=== PATIENT | female | born 1965 | race Caucasian/White ===

== ENCOUNTER 2017-02-12 13:00 | Inpatient (IN) | payer BC, OTHER ==
[~2017-02-12] VITALS: Ht 167.6 cm; Wt 86.3 kg
[~2017-02-12 13:00] MED LIST: BIOT25004 PO; CIME200T4 PO; CYCL-259 PO; GABA-826 PO; IBUP800T PO; LEVO150T5 PO; LORA10TA3 PO; METF10002 PO; MULT-516 PO; OXYC15TA PO; OXYC20TA2 PO; OXYM30SP2 NAS; PRED10TA PO; SITA50TA PO; SOMA PO
[2017-02-19] MEDS ORDERED: THROMBIN 20,000 UNIT VIAL TP ONE (06:46)
[2017-02-19] MEDS ORDERED: BUPIVACAINE/PF 0.5% ONE (06:46)
[2017-02-19] MEDS ORDERED: BACITRACIN 50,000 UNIT ONE (06:46)
[2017-02-19] MEDS ORDERED: EPINEPHRINE 1 MG/ML, 1ML ONE (06:46)
[2017-02-19] MEDS ORDERED: REMIFENTANIL 2 MG ONE (11:33)
[2017-02-19] MEDS ORDERED: KETAMINE 10 MG/ML, 20ML ONE (11:33)
[2017-02-19] MEDS ORDERED: MIDAZOLAM 1 MG/ML, 2ML ONE ×2 (11:33→18:41)
[2017-02-19] MEDS ORDERED: FENTANYL PF 250 MCG/5ML ONE (11:33)
[2017-02-19] MEDS ORDERED: LACTATED RINGERS 1,000 ML IV SCH (11:40)
[2017-02-19 11:41] VITALS: BP 131/76
[2017-02-19] MEDS ORDERED: OXYC40TA27 PO (11:49)
[2017-02-19] MEDS ORDERED: ROCURONIUM 10 MG/ML ONE (13:35)
[2017-02-19] MEDS ORDERED: SUCCINYLCHOLINE 20 MG/ML, 10ML ONE (13:35)
[2017-02-19] MEDS ORDERED: DEXAMETHASONE 4 MG/ML, 1ML ONE (13:35)
[2017-02-19] MEDS ORDERED: PROPOFOL 10 MG/ML, 50ML ONE (13:35)
[2017-02-19] MEDS ORDERED: CEFAZOLIN 1,000 MG ONE (13:35)
[2017-02-19] MEDS ORDERED: PROPOFOL 10 MG/ML, 20ML ONE (13:35)
[2017-02-19] MEDS ORDERED: ONDANSETRON 2MG/ML, 2ML ONE (13:35)
[2017-02-19] MEDS ORDERED: PHENYLEPHRINE 10 MG/ML ONE (13:35)
[2017-02-19] MEDS ORDERED: PROMETHAZINE 25 MG/ML, 1ML IV PRN (15:00)
[2017-02-19] MEDS ORDERED: OXYcodone 5 MG/5 ML ORAL.SOL UDC PO PRN (15:00)
[2017-02-19] MEDS ORDERED: MIDAZOLAM 1 MG/ML, 2ML IV PRN (15:00)
[2017-02-19] MEDS ORDERED: ALBUTEROL SULFATE 2.5 MG/3 ML NPPB PRN (15:00)
[2017-02-19] MEDS ORDERED: LABETALOL 5MG/ML, 20ML IV PRN (15:00)
[2017-02-19] MEDS ORDERED: MEPERIDINE/PF 25MG/0.5ML IVPush PRN (15:00)
[2017-02-19] MEDS ORDERED: ACETAMINOPHEN 325 MG TABLET PO PRN (15:00)
[2017-02-19] MEDS ORDERED: hydrALAzine 20 MG/ML, 1ML IV PRN (15:00)
[2017-02-19] MEDS ORDERED: NEOSPORIN OINT, 15GM ONE (15:20)
[2017-02-19] MEDS ORDERED: BUPIVACAINE/PF-EPI 0.5% 1:200K ONE (16:07)
[2017-02-19] MEDS ORDERED: HYDROmorphone 1 MG/ML, 1ML ONE ×2 (17:02→18:09)
[2017-02-19] MEDS: HYDROmorphone 1 MG/ML, 1ML IV PRN ×4 (18:26→19:56)
[2017-02-19] MEDS ORDERED: HYDROmorphone 2 MG/ML, 1ML ONE (18:30)
[2017-02-19] MEDS ORDERED: ACETAMINOPHEN 650 MG/20.3 ML UDC ONE (18:30)
[2017-02-19] MEDS ORDERED: INSULIN SINGLE DOSE, ER SQ-INSULIN ONE (18:31)
[2017-02-19] MEDS ORDERED: OXYcodone 5 MG/5 ML ORAL.SOL UDC ONE (18:31)
[2017-02-19] MEDS ORDERED: FENTANYL PF 100 MCG/2ML ONE (18:41)
[2017-02-19] MEDS: FENTANYL PF 100 MCG/2ML IV PRN ×2 (18:42→19:26)
[2017-02-19] MEDS ORDERED: INSULIN REGULAR 100 UNITS/ML, 3ML VIAL SQ-INSULIN ONE (19:00)
[2017-02-19] MEDS ORDERED: PHARMACY MAY ADJ FOR RENAL FX MC PRN (20:00)
[2017-02-19 20:15] VITALS: BP 119/77
[2017-02-19] MEDS ORDERED: ZOLPIDEM 5MG TABLET PO PRN (21:00)
[2017-02-19] MEDS ORDERED: DIPHENHYDRAMINE 50 MG/ML, 1ML IVPush PRN (21:30)
[2017-02-19] MEDS ORDERED: ONDANSETRON 2MG/ML, 2ML IV PRN (21:30)
[2017-02-19] MEDS ORDERED: OXYcodone/APAP 5/325MG TABLET PO PRN (21:30)
[2017-02-19] MEDS ORDERED: DIPHENHYDRAMINE 50 MG/ML, 1ML IM PRN (21:30)
[2017-02-19] MEDS ORDERED: HYDROcodone/APAP 5/325 TABLET PO PRN (21:30)
[2017-02-19] MEDS ORDERED: DIPHENHYDRAMINE 50 MG CAPSULE PO PRN (21:30)
[2017-02-19] MEDS ORDERED: PROMETHAZINE 25 MG/ML, 1ML IM PRN (21:30)
[2017-02-19] MEDS ORDERED: METHOCARBAMOL 1,000 MG in DEXTROSE 5% 100 ML IV ONE (22:00)
[2017-02-19] MEDS: NS + 20MEQ KCL 1,000 ML IV SCH (23:13)
[2017-02-19] MEDS: CEFAZOLIN PMX 2GM/50ML 50 ML IVPB SCH (23:13)
[2017-02-20 00:17] VITALS: BP 119/75
[2017-02-20] MEDS: CYCLOBENZAPRINE 10 MG TABLET PO SCH ×4 (00:37→21:56)
[2017-02-20] MEDS ORDERED: DIAZEPAM 5 MG TABLET ONE ×3 (01:43→23:27)
[2017-02-20] MEDS: DIAZEPAM 10 MG TABLET PO PRN ×3 (01:46→23:53)
[2017-02-20] MEDS: INSULIN REGULAR 100 UNITS/ML, 3ML VIAL SQ-INSULIN PRN ×4 (01:59→22:08)
[2017-02-20 02:25] VITALS: BP 121/88
[2017-02-20] MEDS ORDERED: METHOCARBAMOL 750 MG in DEXTROSE 5% 100 ML IV SCH (06:00)
[2017-02-20] MEDS: CEFAZOLIN PMX 2GM/50ML 50 ML IVPB SCH ×2 (06:17→15:06)
[2017-02-20] MEDS ORDERED: INSULIN REGULAR 100 UNITS/ML, 3ML VIAL SQ-INSULIN SCH (07:00)
[2017-02-20 07:43] VITALS: BP 128/83
[2017-02-20] MEDS: SENNA/DOCUSATE TABLET PO SCH (07:59)
[2017-02-20] MEDS: NS + 20MEQ KCL 1,000 ML IV SCH ×2 (09:33→21:36)
[2017-02-20] MEDS ORDERED: MORPHINE SULFATE 4 MG/ML, 1ML ONE (09:37)
[2017-02-20] MEDS: MORPHINE SULFATE 4 MG/ML, 1ML IV PRN (09:39)
[2017-02-20] MEDS ORDERED: morphine SULFATE 10 MG/ML, 1ML IVPush ONE (10:00)
[2017-02-20] MEDS: OXYcodone IR 5MG TABLET PO PRN ×3 (10:07→18:25)
[2017-02-20 14:59] VITALS: BP 94/52
[2017-02-20 18:42] VITALS: BP 125/72
[2017-02-20] MEDS ORDERED: HYDROmorphone 1 MG/ML, 1ML IV ONE (19:00)
[2017-02-20] MEDS ORDERED: OxyconTIN ER 20 MG TAB.ER ONE (21:54)
[2017-02-20] MEDS: OxyconTIN ER 40 MG TAB.ER PO SCH (21:56)
[2017-02-21 01:47] VITALS: BP 107/66
[2017-02-21] MEDS: OXYcodone IR 5MG TABLET PO PRN ×5 (02:00→21:34)
[2017-02-21] MEDS: HYDROmorphone 1 MG/ML, 1ML IV PRN ×2 (04:12→15:30)
[2017-02-21] MEDS: ENOXAPARIN 30 MG/0.3 ML SQ SCH ×2 (06:08→17:01)
[2017-02-21] MEDS: MORPHINE SULFATE 4 MG/ML, 1ML IV PRN ×2 (06:31→23:36)
[2017-02-21 07:47] VITALS: BP 120/65
[2017-02-21] MEDS: CYCLOBENZAPRINE 10 MG TABLET PO SCH ×3 (08:11→21:33)
[2017-02-21] MEDS: SENNA/DOCUSATE TABLET PO SCH (08:11)
[2017-02-21] MEDS: OxyconTIN ER 40 MG TAB.ER PO SCH ×2 (09:00→22:49)
[2017-02-21] MEDS ORDERED: OxyconTIN ER 20 MG TAB.ER ONE (09:31)
[2017-02-21] MEDS: NS + 20MEQ KCL 1,000 ML IV SCH (10:25)
[2017-02-21 13:48] VITALS: BP 99/62
[2017-02-21] MEDS ORDERED: HYDROmorphone 2MG TABLET PO PRN (18:30)
[2017-02-21 19:39] VITALS: BP 124/72
[2017-02-21] MEDS: DIAZEPAM 10 MG TABLET PO PRN (21:45)
[2017-02-22] MEDS: NS + 20MEQ KCL 1,000 ML IV SCH ×2 (00:11→09:45)
[2017-02-22 01:46] VITALS: BP 110/67
[2017-02-22] MEDS: OXYcodone IR 5MG TABLET PO PRN ×5 (03:13→21:29)
[2017-02-22] MEDS: ENOXAPARIN 30 MG/0.3 ML SQ SCH ×2 (06:00→18:00)
[2017-02-22] MEDS ORDERED: METHOCARBAMOL 750 MG TABLET PO SCH (06:00)
[2017-02-22] MEDS: DIAZEPAM 10 MG TABLET PO PRN (06:25)
[2017-02-22] MEDS ORDERED: DEXAMETHASONE 4 MG/ML, 1ML IVPush SCH (07:00)
[2017-02-22] MEDS ORDERED: OxyconTIN ER 20 MG TAB.ER ONE ×2 (07:56→21:06)
[2017-02-22] MEDS: CYCLOBENZAPRINE 10 MG TABLET PO SCH ×3 (08:00→21:26)
[2017-02-22] MEDS: SENNA/DOCUSATE TABLET PO SCH (08:01)
[2017-02-22] MEDS: MAGNESIUM HYDROXIDE 8%, 30ML UDC PO PRN (08:01)
[2017-02-22] MEDS: KETOROLAC 30 MG/1 ML IM SCH ×3 (08:01→18:44)
[2017-02-22] MEDS: OxyconTIN ER 40 MG TAB.ER PO SCH ×2 (08:01→21:00)
[2017-02-22 08:44] VITALS: BP 91/57
[2017-02-22 13:08] VITALS: BP 110/73
[2017-02-22] MEDS: BISACODYL 10 MG SUPP PR PRN (17:02)
[2017-02-22 21:00] VITALS: BP 94/61
[2017-02-23 02:36] VITALS: BP 98/64
[2017-02-23] MEDS: OXYcodone IR 5MG TABLET PO PRN ×3 (03:46→12:09)
[2017-02-23] MEDS: KETOROLAC 30 MG/1 ML IM SCH ×2 (03:47→08:01)
[2017-02-23] MEDS: NS + 20MEQ KCL 1,000 ML IV SCH ×2 (06:00→09:51)
[2017-02-23] MEDS: ENOXAPARIN 30 MG/0.3 ML SQ SCH (06:00)
[2017-02-23 07:28] VITALS: BP 95/58
[2017-02-23] MEDS: MAGNESIUM HYDROXIDE 8%, 30ML UDC PO PRN (08:08)
[2017-02-23] MEDS: OxyconTIN ER 40 MG TAB.ER PO SCH (09:00)
[2017-02-23] MEDS ORDERED: OxyconTIN ER 20 MG TAB.ER ONE (09:22)
[2017-02-23] MEDS: SENNA/DOCUSATE TABLET PO SCH (09:25)
[2017-02-23] MEDS: CYCLOBENZAPRINE 10 MG TABLET PO SCH (09:25)
[2017-02-23] MEDS: BISACODYL 10 MG SUPP PR PRN (09:26)
[2017-02-23] MEDS ORDERED: OXYC40TA27 PO (10:16)
[2017-02-23] MEDS ORDERED: OXYC30TA PO (10:17)
[2017-02-23] MEDS ORDERED: HYDR2TAB29 PO (10:19)
[2017-02-23] MEDS ORDERED: SENN1TAB7 PO (10:21)
[2017-02-23] MEDS ORDERED: DIAZ5TAB PO (10:22)
[2017-02-23] MEDS ORDERED: CALC300T5 PO (10:23)
[2017-02-23] MEDS ORDERED: CHOL200040 PO (10:24)
== END 2017-02-23 12:25 | disposition home or self-care (01) | DRG 455 ==
LOC: ORIP 02-19 11:00 → 4NOR 02-19 20:15
PROVIDERS: ADMIT Neurological Surgery; ATTEND Neurological Surgery
PROC: 0SG30A1 (ICD-10-PCS; 2017-02-19)
PROC: 01NB0ZZ Release Lumbar Nerve, Open Approach (ICD-10-PCS; 2017-02-19)
PROC: 0SB20ZZ Excision of Lumbar Vertebral Disc, Open Approach (ICD-10-PCS; 2017-02-19)
PROC: 4A11X4G Monitoring of Peripheral Nervous Electrical Activity, Intraoperative, External Approach (ICD-10-PCS; 2017-02-19)
PROC: 0SG00A0 Fusion of Lumbar Vertebral Joint with Interbody Fusion Device, Anterior Approach, Anterior Column, Open Approach (ICD-10-PCS; principal; 2017-02-19 13:00)
DX: M48.06 Spinal stenosis, lumbar region (principal); M43.16 Spondylolisthesis, lumbar region; E11.9 Type 2 diabetes mellitus without complications; E07.9 Disorder of thyroid, unspecified; M51.37 Other intervertebral disc degeneration, lumbosacral region
CPT/HCPCS: 36415; 72100; 72110; 82565; 82962; C1713; J0171; J0690; J1100; J1170; J1650; J1815; J1885; J2250; J2270; J2405; J2704; J3010; J3480; J3490; C1762; J0330; J2370; J7120

== ENCOUNTER 2019-03-22 10:31 | Outpatient (CLI) | payer OTHER | END 2019-03-22 23:59 | disposition home or self-care (01) | LOC: CFH 10:31 → EDSTATUS 10:45 → CFH 23:59 | PROVIDERS: ATTEND Family Medicine | DX: M71.21 Synovial cyst of popliteal space [Baker], right knee (principal); F17.200 Nicotine dependence, unspecified, uncomplicated ==